=== PATIENT | female | born 1995 | race Two or more races ===

== ENCOUNTER 2017-08-22 09:09 | Emergency (ER) | payer SELFPAY ==
[~2017-08-22] VITALS: Ht 162.6 cm; Wt 64.9 kg
[2017-08-22 09:39] VITALS: BP 114/85
[2017-08-22] MEDS ORDERED: IBUPROFEN 800 MG TAB PO ONE (10:30)
== END 2017-08-22 10:47 | disposition home or self-care (01) ==
LOC: ER 09:09
DX: S39.012A Strain of muscle, fascia and tendon of lower back, initial encounter (principal); V49.49XA Driver injured in collision with other motor vehicles in traffic accident, initial encounter; Y93.89 Activity, other specified; Y99.8 Other external cause status; Y92.410 Unspecified street and highway as the place of occurrence of the external cause
CPT/HCPCS: 72100